=== PATIENT | male | born 1940 | race Caucasian/White ===

== ENCOUNTER 2020-05-01 08:03 | Outpatient (CLI) | payer MEDICARE, SELFPAY ==
[2020-05-02 01:34] LABS: SARS-CoV-2 RNA PCR Negative
== END 2020-05-01 08:04 | disposition home or self-care (01) ==
PROVIDERS: PCP Family Medicine; Visit Provider Family Medicine
DX: Z20.828 Contact with and (suspected) exposure to other viral communicable diseases (principal)
CPT/HCPCS: 87635; C9803; U0003